=== PATIENT | male | born 1955 | race Caucasian/White ===

== ENCOUNTER 2019-02-12 23:38 | Inpatient (IN) ==
[2019-02-13] MEDS ORDERED: 0.9 % Sodium Chloride 2,000 ML ONE (00:14)
[2019-02-13] MEDS ORDERED: Ketorolac 30 MG/ML VIAL IVP ONE (00:21)
[2019-02-13 00:30] LABS: Basophils % 0.3 %; Hematocrit 41.2 % (37.5-50.1); Hemoglobin 14.5 g/dL (12.9-16.9); Immature Granulocytes % 1.5 % (0-4); Lymphocytes # 0.3 K/mcL (0.6-4.6); Lymphocytes % 4.4 %; Mean Corpuscular HGB Conc 35.2 g/dL (31.6-35.5); Mean Corpuscular Hemoglobin 28.7 pg (28.0-33.3); Mean Corpuscular Volume 81.4 fL (83.0-100.0); Monocytes # 0.1 K/mcL (0.0-1.3); Neutrophils # 5.4 K/mcL (1.6-8.9); Red Blood Count 5.06 M/mcL (4.19-5.50); Red Cell Distribution Width 14.6 % (11.5-14.5); Segmented Neutrophils % 91.8 %; White Blood Count 5.9 K/mcL (4.3-11.1)
[2019-02-13] MEDS: 0.9 % Sodium Chloride 1,000 ML IVC SCH ×4 (00:30→05:16)
[2019-02-13 00:38] LABS: INR 1.2
[2019-02-13 00:50] LABS: Albumin 3.6 g/dL (3.5-5.7); Albumin/Globulin Ratio 0.9 (1.1-2.2); Bilirubin,Direct 0.4 mg/dL (0.0-0.2); Bilirubin,Indirect 0.4 mg/dL (0.0-1.2); Bilirubin,Total 0.8 mg/dL (0.3-1.0); Calcium 8.6 mg/dL (8.6-10.3); Globulin 3.8 g/dL (2.4-3.5); Magnesium 1.9 mg/dL (1.6-2.6); Phosphorous 4.6 mg/dL (2.7-4.5); Total Protein 7.4 g/dL (6.4-8.9)
[2019-02-13 00:51] LABS: Troponin I 0.04 ng/mL (< 0.04)
[2019-02-13 00:57] LABS: Platelet Count 46 K/mcL (140-400)
[2019-02-13 00:58] LABS: Platelet Estimate Marked Decrease (Normal)
[2019-02-13 00:59] LABS: ABG Base Excess -9 mEq/L (-2 to 3); ABG HCO3 12 mEq/L (21-27); ABG Oxygen Saturation 94 % (95-98); ABG PCO2 18 mmHg (35-45); ABG PH 7.46 pH Units (7.32-7.45); ABG PO2 65 mmHg (85-104); ABG TCO2 13 mEq/L (20-26)
[2019-02-13] MEDS ORDERED: cefTRIAXone 2,000 MG in 0.9 % Sodium Chloride Mini Bag 100 ML IVPB ONE (01:16)
[2019-02-13] MEDS ORDERED: 0.9 % Sodium Chloride 1,000 ML IV ONE (02:18)
[2019-02-13 02:57] LABS: Bilirubin,Urine Negative (Negative); Blood,Urine Moderate (Negative); Clarity,Urine Cloudy (Clear); Color,Urine Yellow (Yellow); Glucose,Urine (UA) Normal (Normal); Ketones,Urine Negative (Negative); Leukocyte Esterase,Urine Negative (Negative); Nitrite,Urine Negative (Negative); PH,Urine 5.5 pH Units (5.0-8.0); Protein,Urine 100 mg/dL (Neg-Trace); Specific Gravity,Urine 1.019 (1.010-1.025); Urobilinogen,Urine Normal (Normal)
[2019-02-13 02:58] LABS: Bacteria,Urine None Seen per hpf (None-Few); Hyaline Casts,Urine None Seen per lpf (None-Few); RBC,Urine 0-3 per hpf (0-3); Squamous Epithelial Cell,Urine Many per lpf (None-Few); WBC,Urine 0-3 per hpf (0-3)
[2019-02-13 03:08] LABS: Yeast,Urine Few per hpf (None Seen)
[2019-02-13] MEDS ORDERED: PIPERACILLIN IVP ONE (03:24)
[2019-02-13] MEDS ORDERED: TAZOBACTAM IVP ONE (03:24)
[2019-02-13] MEDS ORDERED: WATER FOR INJ IVP ONE (03:24)
[2019-02-13] MEDS: Norepinephrine 4 MG in D5% in Water 250 ML IVC SCH ×4 (03:45→19:45)
[2019-02-13] MEDS ORDERED: Naloxone 0.4 MG/ML INJ IVP PRN (05:39)
[2019-02-13] MEDS ORDERED: Ondansetron 4 MG/2 ML VIAL IVP PRN (05:39)
[2019-02-13] MEDS ORDERED: Vancomycin (wt based) 1,000 MG VIAL IVPB SCH (06:00)
[2019-02-13] MEDS ORDERED: Potassium Phosphate 44 MEQ in 0.9 % Sodium Chloride 250 ML IVPB PRN (06:47)
[2019-02-13] MEDS: Piperacillin/Tazobactam 3.375 GM in 0.9 % Sodium Chloride Mini Bag 100 ML IVPB SCH ×3 (07:40→23:03)
[2019-02-13] MEDS: Potassium Chloride 40 MEQ/200 ML BAG IVPB PRN ×2 (07:41→16:57)
[2019-02-13] MEDS ORDERED: Sodium Bicarbonate 75 MEQ in 0.45 % Sodium Chloride 1,000 ML IVC SCH (09:45)
[2019-02-13] MEDS: Pantoprazole 40 MG VIAL IVP SCH (10:32)
[2019-02-13 11:05] LABS: Sodium, Urine 62.4 mEq/L
[2019-02-13 11:09] LABS: Complement C3 90 mg/dL (87-200)
[2019-02-13 11:13] LABS: Protein/Creatinine Ratio,Urine 2.49 mg/mg (0.00-0.20)
[2019-02-13] MEDS: Sodium Bicarbonate 75 MEQ in 0.45 % Sodium Chloride 1,000 ML IVC SCH ×2 (12:41→20:27)
[2019-02-13 15:12] LABS: Magnesium 2.2 mg/dL (1.6-2.6); Potassium 3.6 mEq/L (3.5-5.1)
[2019-02-13 15:35] LABS: Calcium 6.9 mg/dL (8.6-10.3)
[2019-02-13 16:05] LABS: VBG Ionized Calcium 0.94 mmol/L (1.15-1.35)
[2019-02-13] MEDS: Calcium Gluconate 1gm/50mL 1 GM/50 ML BAG IVPB PRN (16:58)
[2019-02-13 17:24] LABS: Hemoglobin 11.9 g/dL (12.9-16.9); Red Cell Distribution Width 14.9 % (11.5-14.5)
[2019-02-13 17:25] LABS: Hematocrit 34.2 % (37.5-50.1); Immature Platelets 32.4 % (1.1-6.1); Mean Corpuscular HGB Conc 34.8 g/dL (31.6-35.5); Mean Corpuscular Hemoglobin 28.7 pg (28.0-33.3); Mean Corpuscular Volume 82.4 fL (83.0-100.0); Red Blood Count 4.15 M/mcL (4.19-5.50); White Blood Count 5.9 K/mcL (4.3-11.1)
[2019-02-13 17:27] LABS: Platelet Count 39 K/mcL (140-400)
[2019-02-13 17:57] LABS: Lymphocytes # 0.4 K/mcL (0.6-4.6); Monocytes # 0.2 K/mcL (0.0-1.3); Neutrophils # 5.3 K/mcL (1.6-8.9); Platelet Estimate Decreased (Normal)
[2019-02-14 03:19] LABS: Basophils % 0.3 %; Hemoglobin 11.5 g/dL (12.9-16.9); Immature Granulocytes % 0.6 % (0-4); Red Cell Distribution Width 14.6 % (11.5-14.5); White Blood Count 3.4 K/mcL (4.3-11.1)
[2019-02-14 03:21] LABS: Hematocrit 32.9 % (37.5-50.1); Immature Platelets 23.7 % (1.1-6.1); Lymphocytes # 0.2 K/mcL (0.6-4.6); Lymphocytes % 5.7 %; Mean Corpuscular Hemoglobin 28.8 pg (28.0-33.3); Mean Corpuscular Volume 82.5 fL (83.0-100.0); Monocytes # 0.1 K/mcL (0.0-1.3); Monocytes % 2.1 %; Neutrophils # 3.1 K/mcL (1.6-8.9); Red Blood Count 3.99 M/mcL (4.19-5.50); Segmented Neutrophils % 91.3 %
[2019-02-14 03:22] LABS: Platelet Count 32 K/mcL (140-400)
[2019-02-14 03:27] LABS: VBG Ionized Calcium 0.98 mmol/L (1.15-1.35)
[2019-02-14] MEDS: Calcium Gluconate 1gm/50mL 1 GM/50 ML BAG IVPB PRN ×2 (03:33→13:29)
[2019-02-14 03:41] LABS: Albumin 2.6 g/dL (3.5-5.7); Albumin/Globulin Ratio 0.9 (1.1-2.2); Bilirubin,Direct 1.5 mg/dL (0.0-0.2); Bilirubin,Indirect 0.5 mg/dL (0.0-1.2); Calcium 7.2 mg/dL (8.6-10.3); Globulin 2.9 g/dL (2.4-3.5); Magnesium 2.1 mg/dL (1.6-2.6); Phosphorous 4.5 mg/dL (2.7-4.5); Potassium 3.5 mEq/L (3.5-5.1); Total Protein 5.5 g/dL (6.4-8.9)
[2019-02-14 03:52] LABS: Platelet Estimate Decreased (Normal)
[2019-02-14] MEDS: Acetaminophen 325 MG TABLET PO PRN ×2 (04:15→21:13)
[2019-02-14] MEDS: Sodium Bicarbonate 75 MEQ in 0.45 % Sodium Chloride 1,000 ML IVC SCH ×3 (04:16→21:42)
[2019-02-14] MEDS: Potassium Chloride 40 MEQ/200 ML BAG IVPB PRN ×2 (04:24→13:35)
[2019-02-14] MEDS ORDERED: Ringers Solution, Lactated 500 ML IVC ONE (07:31)
[2019-02-14] MEDS: Piperacillin/Tazobactam 3.375 GM in 0.9 % Sodium Chloride Mini Bag 100 ML IVPB SCH ×2 (08:40→20:39)
[2019-02-14] MEDS: Pantoprazole 40 MG VIAL IVP SCH (08:40)
[2019-02-14] MEDS ORDERED: Acetaminophen IV 1,000 MG/100 ML INFUS..BTL IVPB ONE (11:43)
[2019-02-14] MEDS: DilTIAZem 50 MG in 0.9 % Sodium Chloride 40 ML IVC SCH ×3 (12:30→21:14)
[2019-02-14] MEDS: Norepinephrine 4 MG in D5% in Water 250 ML IVC SCH ×2 (12:52→20:58)
[2019-02-14 12:53] LABS: Magnesium 2.1 mg/dL (1.6-2.6); Potassium 3.4 mEq/L (3.5-5.1)
[2019-02-14 13:12] LABS: VBG Ionized Calcium 0.99 mmol/L (1.15-1.35)
[2019-02-14 17:00] LABS: Immature Reticulocyte % 3.4 % (11.0-38.0); Retculocyte # 0.02 M/mcL (0.05-0.10); Reticulocyte % 0.6 % (1.6-2.8)
[2019-02-14 17:44] LABS: Folate 13.1 ng/mL (3.0-16.0)
[2019-02-14 17:51] LABS: Vitamin B12 > 1500 pg/mL (250-1100)
[2019-02-15] MEDS: Hydrocortisone Sodium Succ 100 MG/2 ML VIAL IVP SCH ×4 (02:34→20:15)
[2019-02-15 02:40] LABS: VBG Ionized Calcium 0.91 mmol/L (1.15-1.35)
[2019-02-15 02:41] LABS: Basophils % 0.4 %; Hematocrit 31.4 % (37.5-50.1); Hemoglobin 10.8 g/dL (12.9-16.9); Immature Granulocytes % 1.2 % (0-4); Immature Platelets 20.1 % (1.1-6.1); Lymphocytes # 0.2 K/mcL (0.6-4.6); Lymphocytes % 3.9 %; Mean Corpuscular HGB Conc 34.4 g/dL (31.6-35.5); Mean Corpuscular Hemoglobin 28.4 pg (28.0-33.3); Mean Corpuscular Volume 82.6 fL (83.0-100.0); Mean Platelet Volume 14.2 fL (9.4-12.4); Monocytes # 0.3 K/mcL (0.0-1.3); Neutrophils # 4.3 K/mcL (1.6-8.9); Red Cell Distribution Width 14.7 % (11.5-14.5); Segmented Neutrophils % 88.5 %; White Blood Count 4.9 K/mcL (4.3-11.1)
[2019-02-15 02:42] LABS: Adenovirus Not Detected (Not Detect); Bordetella Pertussis Not Detected (Not Detect); Chlamydophila pneumoniae Not Detected (Not Detect); Coronavirus 229E Not Detected (Not Detect); Coronavirus HKU1 Not Detected (Not Detect); Coronavirus NL63 Not Detected (Not Detect); Coronavirus OC43 Not Detected (Not Detect); Human Metapneumovirus Not Detected (Not Detect); Human Rhinovirus/Enterovirus Not Detected (Not Detect); Influenza A Subtype 2009 H1 Not Detected (Not Detect); Influenza B Not Detected (Not Detect); Mycoplasma pneumoniae Not Detected (Not Detect); Parainfluenza Virus 1 Not Detected (Not Detect); Parainfluenza Virus 2 Not Detected (Not Detect); Parainfluenza Virus 3 Not Detected (Not Detect); Parainfluenza Virus 4 Not Detected (Not Detect); Respiratory Syncytial Virus Not Detected (Not Detect)
[2019-02-15] MEDS: Norepinephrine 4 MG in D5% in Water 250 ML IVC SCH ×4 (02:46→16:15)
[2019-02-15 02:52] LABS: Platelet Count 34 K/mcL (140-400)
[2019-02-15 02:54] LABS: Albumin 2.2 g/dL (3.5-5.7); Albumin/Globulin Ratio 0.8 (1.1-2.2); Bilirubin,Direct 2.3 mg/dL (0.0-0.2); Bilirubin,Indirect 0.7 mg/dL (0.0-1.2); Globulin 2.9 g/dL (2.4-3.5); Potassium 3.6 mEq/L (3.5-5.1); Total Protein 5.1 g/dL (6.4-8.9)
[2019-02-15 02:59] LABS: ABG Base Excess -7 mEq/L (-2 to 3); ABG HCO3 15 mEq/L (21-27); ABG Oxygen Saturation 95 % (95-98); ABG PCO2 22 mmHg (35-45); ABG PH 7.45 pH Units (7.32-7.45); ABG PO2 70 mmHg (85-104); ABG TCO2 16 mEq/L (20-26)
[2019-02-15 03:13] LABS: Kappa Qnt Free Light Chains 11.5 mg/dL (0.33-1.94); Lambda Qnt Free Light Chains 11.5 mg/dL (0.57-2.63)
[2019-02-15 03:36] LABS: Platelet Estimate Decreased (Normal)
[2019-02-15] MEDS: Potassium Chloride 40 MEQ/200 ML BAG IVPB PRN ×2 (04:01→04:57)
[2019-02-15 04:04] LABS: Basophils % 0.2 %; Mean Corpuscular HGB Conc 34.6 g/dL (31.6-35.5)
[2019-02-15 04:06] LABS: Hematocrit 30.9 % (37.5-50.1); Hemoglobin 10.7 g/dL (12.9-16.9); Immature Platelets 19.8 % (1.1-6.1); Lymphocytes # 0.2 K/mcL (0.6-4.6); Mean Corpuscular Hemoglobin 28.5 pg (28.0-33.3); Mean Corpuscular Volume 82.2 fL (83.0-100.0); Monocytes # 0.3 K/mcL (0.0-1.3); Monocytes % 4.9 %; Neutrophils # 4.5 K/mcL (1.6-8.9); Red Blood Count 3.76 M/mcL (4.19-5.50); Red Cell Distribution Width 14.8 % (11.5-14.5); Segmented Neutrophils % 88.9 %; White Blood Count 5.1 K/mcL (4.3-11.1)
[2019-02-15 04:09] LABS: Mean Platelet Volume 13.9 fL (9.4-12.4); Platelet Count 35 K/mcL (140-400)
[2019-02-15] MEDS: Calcium Gluconate 1gm/50mL 1 GM/50 ML BAG IVPB PRN ×3 (04:10→19:56)
[2019-02-15 04:31] LABS: Albumin 2.1 g/dL (3.5-5.7); Albumin/Globulin Ratio 0.8 (1.1-2.2); Bilirubin,Direct 2.3 mg/dL (0.0-0.2); Bilirubin,Indirect 0.7 mg/dL (0.0-1.2); Calcium 6.9 mg/dL (8.6-10.3); Globulin 2.8 g/dL (2.4-3.5); Magnesium 2.1 mg/dL (1.6-2.6); Potassium 3.4 mEq/L (3.5-5.1); Total Protein 4.9 g/dL (6.4-8.9)
[2019-02-15 04:35] LABS: Hypochromasia Present (Not Present); Platelet Estimate Decreased (Normal)
[2019-02-15 05:36] LABS: Bilirubin,Urine Negative (Negative); Blood,Urine Moderate (Negative); Clarity,Urine Cloudy (Clear); Color,Urine Yellow (Yellow); Glucose,Urine (UA) 100 mg/dL (Normal); Ketones,Urine Negative (Negative); Leukocyte Esterase,Urine Negative (Negative); Nitrite,Urine Negative (Negative); PH,Urine 5.5 pH Units (5.0-8.0); Protein,Urine 100 mg/dL (Neg-Trace); Specific Gravity,Urine 1.016 (1.010-1.025); Urobilinogen,Urine Normal (Normal)
[2019-02-15 05:38] LABS: Hyaline Casts,Urine None Seen per lpf (None-Few); Squamous Epithelial Cell,Urine Many per lpf (None-Few); WBC,Urine 15-30 per hpf (0-3)
[2019-02-15 05:52] LABS: Bacteria,Urine Moderate per hpf (None-Few); RBC,Urine 0-3 per hpf (0-3)
[2019-02-15] MEDS: Sodium Bicarbonate 75 MEQ in 0.45 % Sodium Chloride 1,000 ML IVC SCH ×2 (05:52→14:01)
[2019-02-15] MEDS ORDERED: Aminoglycoside Consult 1 EACH MC ONE (07:33)
[2019-02-15] MEDS: Pantoprazole 40 MG VIAL IVP SCH (08:26)
[2019-02-15] MEDS: Piperacillin/Tazobactam 3.375 GM in 0.9 % Sodium Chloride Mini Bag 100 ML IVPB SCH ×2 (08:29→16:37)
[2019-02-15] MEDS ORDERED: 0.9 % Sodium Chloride 1,000 ML PRIME SCH (08:30)
[2019-02-15] MEDS ORDERED: Vancomycin 500 MG in 0.9 % Sodium Chloride Mini Bag 100 ML IVPB ONE (09:00)
[2019-02-15] MEDS ORDERED: Fluconazole 100 MG TABLET PO SCH (09:00)
[2019-02-15 10:44] LABS: Hemoglobin 10.7 g/dL (12.9-16.9)
[2019-02-15 10:45] LABS: VBG Ionized Calcium 1.01 mmol/L (1.15-1.35)
[2019-02-15 10:46] LABS: Hematocrit 30.6 % (37.5-50.1); Immature Platelets 19.1 % (1.1-6.1); Mean Corpuscular Hemoglobin 28.8 pg (28.0-33.3); Mean Corpuscular Volume 82.5 fL (83.0-100.0); Monocytes # 0.1 K/mcL (0.0-1.3); Red Blood Count 3.71 M/mcL (4.19-5.50); Red Cell Distribution Width 14.8 % (11.5-14.5); White Blood Count 5.6 K/mcL (4.3-11.1)
[2019-02-15 10:51] LABS: Platelet Count 39 K/mcL (140-400)
[2019-02-15 11:15] LABS: Serine Protease-3 Antibody 1 AU/mL (0-19)
[2019-02-15 11:16] LABS: ANA IgG by ELISA NONE DETECTED (None Detected)
[2019-02-15 11:20] LABS: Neutrophils # 5.5 K/mcL (1.6-8.9); Platelet Estimate Decreased (Normal)
[2019-02-15] MEDS ORDERED: *HR* Heparin 5,000 UNIT/ML VIAL ONE (13:08)
[2019-02-15] MEDS ORDERED: 0.9 % Sodium Chloride 500 ML ONE (13:57)
[2019-02-15] MEDS: PrismaSATE BGK 4/2.5 5,000 ML CRRT SCH ×6 (14:02→23:00)
[2019-02-15] MEDS ORDERED: 0.9 % Sodium Chloride 250 ML ONE (15:23)
[2019-02-15 16:04] LABS: VBG Ionized Calcium 1.01 mmol/L (1.15-1.35)
[2019-02-15] MEDS: Doxycycline 100 MG in 0.9 % Sodium Chloride Mini Bag 100 ML IVPB SCH (17:37)
[2019-02-15 17:53] LABS: % Iron Saturation 33 % (20-55); Iron 58 mcg/dL (65-175); Transferrin 124 mg/dL (203-362)
[2019-02-15 18:17] LABS: Ferritin > 1500 ng/mL (20-250)
[2019-02-15 19:42] LABS: Hepatitis B Core IgM Nonreactive (Nonreactive); Hepatitis C Virus Antibody Nonreactive (Nonreactive)
[2019-02-15 20:55] LABS: Hepatitis B Surface Antibody 32.84 mIU/mL
[2019-02-15 21:06] LABS: Hepatitis B Surface Antigen Nonreactive (Nonreactive)
[2019-02-16] MEDS: Piperacillin/Tazobactam 3.375 GM in 0.9 % Sodium Chloride Mini Bag 100 ML IVPB SCH ×4 (00:23→23:59)
[2019-02-16] MEDS: Sodium Bicarbonate 75 MEQ in 0.45 % Sodium Chloride 1,000 ML IVC SCH (00:26)
[2019-02-16 01:20] LABS: Alpha 2 Globulin (PEP) 0.69 g/dL (0.48-1.05); Beta Globulin (PEP) 0.79 g/dL (0.48-1.10)
[2019-02-16] MEDS: Hydrocortisone Sodium Succ 100 MG/2 ML VIAL IVP SCH ×2 (02:14→07:54)
[2019-02-16] MEDS: PrismaSATE BGK 4/2.5 5,000 ML CRRT SCH ×12 (03:00→23:21)
[2019-02-16 03:43] LABS: VBG Ionized Calcium 1.08 mmol/L (1.15-1.35)
[2019-02-16 03:45] LABS: Basophils % 0.3 %; Hematocrit 28.6 % (37.5-50.1); Hemoglobin 10.1 g/dL (12.9-16.9); Immature Granulocytes % 1.8 % (0-4); Immature Platelets 18.2 % (1.1-6.1); Lymphocytes # 0.3 K/mcL (0.6-4.6); Lymphocytes % 7.4 %; Mean Corpuscular HGB Conc 35.3 g/dL (31.6-35.5); Mean Corpuscular Hemoglobin 28.8 pg (28.0-33.3); Mean Corpuscular Volume 81.5 fL (83.0-100.0); Mean Platelet Volume 13.1 fL (9.4-12.4); Monocytes # 0.3 K/mcL (0.0-1.3); Monocytes % 7.4 %; Neutrophils # 2.8 K/mcL (1.6-8.9); Red Blood Count 3.51 M/mcL (4.19-5.50); Red Cell Distribution Width 14.6 % (11.5-14.5); Segmented Neutrophils % 83.1 %; White Blood Count 3.4 K/mcL (4.3-11.1)
[2019-02-16 03:50] LABS: Platelet Count 40 K/mcL (140-400)
[2019-02-16 03:56] LABS: Albumin 2.3 g/dL (3.5-5.7); Albumin/Globulin Ratio 0.7 (1.1-2.2); Bilirubin,Direct 2.1 mg/dL (0.0-0.2); Bilirubin,Indirect 0.7 mg/dL (0.0-1.2); Bilirubin,Total 2.8 mg/dL (0.3-1.0); Calcium 7.7 mg/dL (8.6-10.3); Globulin 3.1 g/dL (2.4-3.5); Magnesium 2.4 mg/dL (1.6-2.6); Phosphorous 3.9 mg/dL (2.7-4.5); Potassium 3.4 mEq/L (3.5-5.1); Total Protein 5.4 g/dL (6.4-8.9)
[2019-02-16] MEDS: Calcium Gluconate 1gm/50mL 1 GM/50 ML BAG IVPB PRN (04:21)
[2019-02-16] MEDS: Potassium Chloride 40 MEQ/200 ML BAG IVPB PRN ×3 (04:21→21:16)
[2019-02-16 04:43] LABS: Platelet Estimate Decreased (Normal); Reactive Lymphocytes Present (Not Present)
[2019-02-16] MEDS: Doxycycline 100 MG in 0.9 % Sodium Chloride Mini Bag 100 ML IVPB SCH ×2 (06:11→17:49)
[2019-02-16] MEDS: Pantoprazole 40 MG VIAL IVP SCH (07:54)
[2019-02-16 10:49] LABS: IFE Reflexed NOT DONE
[2019-02-16 21:06] LABS: Magnesium 2.5 mg/dL (1.6-2.6); Potassium 3.6 mEq/L (3.5-5.1)
[2019-02-17 03:45] LABS: Mean Corpuscular HGB Conc 34.4 g/dL (31.6-35.5); Mean Corpuscular Hemoglobin 28.7 pg (28.0-33.3)
[2019-02-17 03:47] LABS: VBG Ionized Calcium 1.12 mmol/L (1.15-1.35)
[2019-02-17 03:47] LABS: Basophils % 0.6 %; Hematocrit 28.8 % (37.5-50.1); Hemoglobin 9.9 g/dL (12.9-16.9); Immature Granulocytes % 0.9 % (0-4); Lymphocytes # 1.1 K/mcL (0.6-4.6); Lymphocytes % 33.3 %; Mean Corpuscular Volume 83.5 fL (83.0-100.0); Monocytes # 0.1 K/mcL (0.0-1.3); Monocytes % 2.7 %; Neutrophils # 2.1 K/mcL (1.6-8.9); Red Blood Count 3.45 M/mcL (4.19-5.50); Segmented Neutrophils % 62.5 %; White Blood Count 3.3 K/mcL (4.3-11.1)
[2019-02-17 03:58] LABS: Platelet Count 47 K/mcL (140-400)
[2019-02-17 04:05] LABS: Albumin 2.3 g/dL (3.5-5.7); Albumin/Globulin Ratio 0.7 (1.1-2.2); Bilirubin,Direct 1.9 mg/dL (0.0-0.2); Bilirubin,Indirect 0.8 mg/dL (0.0-1.2); Bilirubin,Total 2.7 mg/dL (0.3-1.0); Calcium 7.9 mg/dL (8.6-10.3); Globulin 3.3 g/dL (2.4-3.5); Magnesium 2.5 mg/dL (1.6-2.6); Phosphorous 1.8 mg/dL (2.7-4.5); Potassium 3.7 mEq/L (3.5-5.1); Total Protein 5.6 g/dL (6.4-8.9)
[2019-02-17 04:24] LABS: Hypochromasia Present (Not Present); Platelet Estimate Decreased (Normal); Reactive Lymphocytes Present (Not Present)
[2019-02-17] MEDS: Potassium Chloride 40 MEQ/200 ML BAG IVPB PRN (04:58)
[2019-02-17] MEDS: Doxycycline 100 MG in 0.9 % Sodium Chloride Mini Bag 100 ML IVPB SCH ×2 (04:59→16:19)
[2019-02-17] MEDS: PrismaSATE BGK 4/2.5 5,000 ML CRRT SCH ×2 (07:00→12:24)
[2019-02-17] MEDS: Pantoprazole 40 MG VIAL IVP SCH (08:24)
[2019-02-17] MEDS: Piperacillin/Tazobactam 3.375 GM in 0.9 % Sodium Chloride Mini Bag 100 ML IVPB SCH ×3 (08:25→23:45)
[2019-02-17] MEDS ORDERED: hydrOXYzine pamoate 25 MG CAPSULE PO PRN (10:30)
[2019-02-17] MEDS: *HR* Heparin 5,000 UNIT/ML VIAL IV PRN ×2 (12:03→12:25)
[2019-02-17] MEDS ORDERED: *HR* Heparin 5,000 UNIT/ML VIAL ONE (12:08)
[2019-02-17] MEDS ORDERED: Ondansetron 4 MG/2 ML VIAL IVP PRN (12:51)
[2019-02-17] MEDS ORDERED: Naloxone 0.4 MG/ML INJ IVP PRN (12:51)
[2019-02-17 14:29] LABS: Immunoglobulin A 345 mg/dL (68-408); Immunoglobulin G 998 mg/dL (768-1632); Immunoglobulin M 219 mg/dL (35-263)
[2019-02-17] MEDS: hydrOXYzine pamoate 25 MG CAPSULE PO PRN (22:34)
[2019-02-18 02:33] LABS: Alpha 2 Globulin (PEP) 0.68 g/dL (0.48-1.05)
[2019-02-18 04:16] LABS: Eosinophils % 0.2 %; Hemoglobin 9.7 g/dL (12.9-16.9); Mean Corpuscular HGB Conc 33.4 g/dL (31.6-35.5); Mean Corpuscular Hemoglobin 28.7 pg (28.0-33.3); Mean Corpuscular Volume 85.8 fL (83.0-100.0); Red Blood Count 3.38 M/mcL (4.19-5.50); Red Cell Distribution Width 15.1 % (11.5-14.5)
[2019-02-18 04:18] LABS: Basophils % 0.5 %; Immature Granulocytes % 0.7 % (0-4); Immature Platelets 12.9 % (1.1-6.1); Lymphocytes # 3.4 K/mcL (0.6-4.6); Lymphocytes % 59.3 %; Mean Platelet Volume 12.3 fL (9.4-12.4); Monocytes # 0.3 K/mcL (0.0-1.3); Monocytes % 5.3 %; Neutrophils # 1.9 K/mcL (1.6-8.9); White Blood Count 5.7 K/mcL (4.3-11.1)
[2019-02-18 04:21] LABS: Platelet Count 64 K/mcL (140-400)
[2019-02-18 04:36] LABS: Albumin 2.3 g/dL (3.5-5.7); Albumin/Globulin Ratio 0.7 (1.1-2.2); Bilirubin,Direct 1.1 mg/dL (0.0-0.2); Bilirubin,Indirect 0.8 mg/dL (0.0-1.2); Bilirubin,Total 1.9 mg/dL (0.3-1.0); Calcium 7.8 mg/dL (8.6-10.3); Globulin 3.2 g/dL (2.4-3.5); Magnesium 2.3 mg/dL (1.6-2.6); Phosphorous 3.5 mg/dL (2.7-4.5); Platelet Estimate Decreased (Normal); Potassium 4.2 mEq/L (3.5-5.1); Total Protein 5.5 g/dL (6.4-8.9)
[2019-02-18] MEDS: Doxycycline 100 MG in 0.9 % Sodium Chloride Mini Bag 100 ML IVPB SCH ×2 (05:28→17:53)
[2019-02-18] MEDS: Piperacillin/Tazobactam 3.375 GM in 0.9 % Sodium Chloride Mini Bag 100 ML IVPB SCH ×2 (09:04→16:14)
[2019-02-18 09:45] LABS: IFE Reflexed IFE Done
[2019-02-19] MEDS: Piperacillin/Tazobactam 3.375 GM in 0.9 % Sodium Chloride Mini Bag 100 ML IVPB SCH ×2 (00:22→08:09)
[2019-02-19 04:00] LABS: Hemoglobin 9.6 g/dL (12.9-16.9)
[2019-02-19 04:02] LABS: Basophils % 0.4 %; Eosinophils % 0.4 %; Hematocrit 28.7 % (37.5-50.1); Immature Granulocytes % 0.9 % (0-4); Immature Platelets 9.4 % (1.1-6.1); Lymphocytes # 3.4 K/mcL (0.6-4.6); Lymphocytes % 59.5 %; Mean Corpuscular HGB Conc 33.4 g/dL (31.6-35.5); Mean Corpuscular Hemoglobin 28.4 pg (28.0-33.3); Mean Corpuscular Volume 84.9 fL (83.0-100.0); Mean Platelet Volume 12.4 fL (9.4-12.4); Monocytes # 0.4 K/mcL (0.0-1.3); Monocytes % 7.2 %; Neutrophils # 1.8 K/mcL (1.6-8.9); Red Blood Count 3.38 M/mcL (4.19-5.50); Red Cell Distribution Width 15.2 % (11.5-14.5); Segmented Neutrophils % 31.6 %; White Blood Count 5.7 K/mcL (4.3-11.1)
[2019-02-19 04:05] LABS: Platelet Count 77 K/mcL (140-400)
[2019-02-19 04:12] LABS: Potassium 4.2 mEq/L (3.5-5.1)
[2019-02-19 04:38] LABS: Platelet Estimate Decreased (Normal); Reactive Lymphocytes Present (Not Present)
[2019-02-19 04:40] LABS: Anisocytosis 1+ (Not Present)
[2019-02-19] MEDS: Doxycycline 100 MG in 0.9 % Sodium Chloride Mini Bag 100 ML IVPB SCH (05:40)
[2019-02-19] MEDS: hydrOXYzine pamoate 25 MG CAPSULE PO PRN ×2 (12:40→21:45)
[2019-02-19] MEDS: Doxycycline 100 MG CAPSULE PO SCH (21:45)
[2019-02-19] MEDS: Melatonin 3 MG TABLET PO SCH (21:45)
[2019-02-19 22:19] LABS: BCR-ABL1 Specimen Source NOT SPECIFIED
[2019-02-20 04:03] LABS: Eosinophils % 1.1 %; Hematocrit 29.9 % (37.5-50.1); Hemoglobin 9.8 g/dL (12.9-16.9); Mean Corpuscular HGB Conc 32.8 g/dL (31.6-35.5); Mean Corpuscular Hemoglobin 28.2 pg (28.0-33.3)
[2019-02-20 04:05] LABS: Basophils % 0.4 %; Eosinophils # 0.1 K/mcL (0.0-0.6); Immature Granulocytes % 1.3 % (0-4); Immature Platelets 7.2 % (1.1-6.1); Lymphocytes % 42.9 %; Mean Corpuscular Volume 85.9 fL (83.0-100.0); Mean Platelet Volume 11.9 fL (9.4-12.4); Monocytes # 0.5 K/mcL (0.0-1.3); Red Blood Count 3.48 M/mcL (4.19-5.50); Red Cell Distribution Width 15.3 % (11.5-14.5); Segmented Neutrophils % 43.3 %; White Blood Count 4.6 K/mcL (4.3-11.1)
[2019-02-20 04:07] LABS: Platelet Count 94 K/mcL (140-400)
[2019-02-20 04:22] LABS: Calcium 8.4 mg/dL (8.6-10.3); Potassium 3.9 mEq/L (3.5-5.1)
[2019-02-20 04:31] LABS: Platelet Estimate Decreased (Normal)
[2019-02-20] MEDS: Doxycycline 100 MG CAPSULE PO SCH ×2 (09:01→20:39)
[2019-02-20 14:03] LABS: Albumin 2.6 g/dL (3.5-5.7); Albumin/Globulin Ratio 0.8 (1.1-2.2); Bilirubin,Direct 0.5 mg/dL (0.0-0.2); Bilirubin,Indirect 0.7 mg/dL (0.0-1.2); Bilirubin,Total 1.2 mg/dL (0.3-1.0); Globulin 3.4 g/dL (2.4-3.5)
[2019-02-20] MEDS: Melatonin 3 MG TABLET PO SCH (20:39)
[2019-02-20] MEDS: traZODone 50 MG TABLET PO SCH (20:40)
[2019-02-20] MEDS: hydrOXYzine pamoate 25 MG CAPSULE PO PRN (20:40)
[2019-02-21 04:54] LABS: Eosinophils % 0.9 %; Hematocrit 30.9 % (37.5-50.1); Hemoglobin 10.2 g/dL (12.9-16.9); Immature Granulocytes % 0.7 % (0-4); Lymphocytes # 1.4 K/mcL (0.6-4.6); Lymphocytes % 31.7 %; Mean Corpuscular Hemoglobin 28.7 pg (28.0-33.3); Mean Corpuscular Volume 86.8 fL (83.0-100.0); Mean Platelet Volume 11.5 fL (9.4-12.4); Monocytes # 0.7 K/mcL (0.0-1.3); Monocytes % 15.4 %; Neutrophils # 2.2 K/mcL (1.6-8.9); Platelet Count 120 K/mcL (140-400); Red Blood Count 3.56 M/mcL (4.19-5.50); Red Cell Distribution Width 15.3 % (11.5-14.5); Segmented Neutrophils % 51.3 %; White Blood Count 4.3 K/mcL (4.3-11.1)
[2019-02-21 05:11] LABS: Calcium 8.6 mg/dL (8.6-10.3)
[2019-02-21 05:30] LABS: Platelet Estimate Slight Decrease (Normal)
[2019-02-21 05:31] LABS: Reactive Lymphocytes Present (Not Present)
[2019-02-21] MEDS: Doxycycline 100 MG CAPSULE PO SCH ×2 (07:37→19:57)
[2019-02-21] MEDS: Melatonin 3 MG TABLET PO SCH (19:57)
[2019-02-21] MEDS: traZODone 50 MG TABLET PO SCH (19:57)
[2019-02-22 06:36] LABS: Basophils % 0.2 %; Eosinophils % 0.7 %; Hematocrit 33.1 % (37.5-50.1); Hemoglobin 11.1 g/dL (12.9-16.9); Immature Granulocytes % 0.5 % (0-4); Lymphocytes # 1.2 K/mcL (0.6-4.6); Lymphocytes % 27.8 %; Mean Corpuscular HGB Conc 33.5 g/dL (31.6-35.5); Mean Corpuscular Hemoglobin 28.7 pg (28.0-33.3); Mean Corpuscular Volume 85.5 fL (83.0-100.0); Mean Platelet Volume 11.5 fL (9.4-12.4); Monocytes # 0.6 K/mcL (0.0-1.3); Platelet Count 130 K/mcL (140-400); Red Blood Count 3.87 M/mcL (4.19-5.50); Red Cell Distribution Width 14.9 % (11.5-14.5); Segmented Neutrophils % 55.8 %; White Blood Count 4.2 K/mcL (4.3-11.1)
[2019-02-22 06:40] LABS: Neutrophils # 2.3 K/mcL (1.6-8.9)
[2019-02-22 06:59] LABS: Calcium 9.4 mg/dL (8.6-10.3)
[2019-02-22 07:19] LABS: Platelet Estimate Normal (Normal)
[2019-02-22 07:20] LABS: Reactive Lymphocytes Present (Not Present)
[2019-02-22] MEDS: Doxycycline 100 MG CAPSULE PO SCH (07:25)
[2019-02-22] MEDS: *HR* Heparin 5,000 UNIT/ML VIAL SQ SCH (17:04)
[2019-02-22] MEDS: Melatonin 3 MG TABLET PO SCH (19:53)
[2019-02-22] MEDS: traZODone 50 MG TABLET PO SCH (19:53)
[2019-02-23] MEDS: *HR* Heparin 5,000 UNIT/ML VIAL SQ SCH ×2 (06:14→17:19)
[2019-02-23] MEDS ORDERED: Aspirin Enteric Coated 81 MG Tablet PO SCH (09:00)
[2019-02-23 10:43] VITALS: BP 135/79
== END 2019-02-23 18:33 | DRG 720 ==
LOC: EMEROOARM 23:38 → SUATTDRO 02-13 04:28 → ICNU 02-13 04:28 → MERGE 02-13 04:28 → ICNU 02-13 04:33 → 2ANU 02-17 13:59
PROVIDERS: ADMIT Internal Medicine; ATTEND Internal Medicine
PROC: IRLYMPH (2019-02-14 13:00)